=== PATIENT | female | born 1940 | race Caucasian/White ===

== ENCOUNTER 2022-05-31 20:18 | Inpatient (IN) | payer OTHER ==
[~2022-05-31] VITALS: Ht 157.5 cm; Wt 72.7 kg
[~2022-05-31 20:18] MED LIST: ASPI81CH PO; ATOR20 PO; LISI20 PO; METO50ER PO
[2022-05-31 22:41] LABS: Free Thyroxine 1.34 ng/dL (0.70-1.60); Magnesium, Blood 2.5 mg/dL (1.6-2.4); Phosphorus, Blood 5.7 mg/dL (2.5-4.9)
--- NOTE | 2022-06-01 04:46 | NUR ---
PATIENT IS ALERT AND ORIENTED X4, COOPERATIVE WITH CARE. BED ALRM USED SISTER STATES SHE HAS BEEN "GROGGY, AND FORGETS LATELY" WELL UNSTABLE ON HER FEET PER REPORT. VSS, AND NO COMPLAINTS OF PAIN. LUNG SOUNDS CLEAR BUT DIM IN BASES. TELE READING NS AT 73 PER TECH. IV INFUSING AT 200 AND WNL. ABD FIRM, DISTENDED AND HAS HARD PALPABLE LUMPS. NO SKIN ISSUES OR BREAKDOWN. N/V TREATED PER JUN. WILL CONT TO MONITOR.
[2022-06-01 04:58] LABS: Bun/Creatinine Ratio 16.7 (12.0-20.0); Creatinine, Blood 3.83 mg/dL (0.40-1.00); Potassium, Blood 4.6 mmol/L (3.5-5.5)
[2022-06-01 05:48] LABS: Calcium, Blood 12.5 mg/dL (8.5-10.1)
--- NOTE | 2022-06-01 10:39 | NUR ---
Spiritual care visit attempted. Upon receiving a referral for spiritual care, I visited the patient. I introduced myself, my title and the purpose my visit and patient stated that she is rolling over and going to sleep now. I then ask if she would like me to contact someone from her dada group ([employer]) and she stated that they have already come but thank you for asking. I will continue to remain available to patient and family.
[2022-06-01] MEDS ORDERED: HYDROCODONE-AC1 EA10 PO (18:07)
[2022-06-01] MEDS ORDERED: ONDA4ODT PO (18:08)
--- NOTE | 2022-06-01 18:36 | NUR ---
SHIFT SUMMARY MS BALDERRAMA HAS BEEN TIRED AND SLEEPY TODAY. SHE IS ABLE TO ANSWER ALL ORIENTATION QUESTIONS. HER SISTER SAID THAT SHE HAS BEEN CONFUSED FOR SEVERAL DAYS AND SHE DID HAVE SOME TROUBLE DESCRIBING SOME OF HER SYMPTOMS TODAY. SHE HAS HAD MINIMAL DISCOMFORT, HAS HAD NAUSEA WHICH WAS EASED WITH ZOFRAN. IVF CONTINUE. VERY POOR PO INTAKE, SHE HAS EATEN A FEW BITES TODAY, MOSTLY SAID THAT SHE HAS NO APPETITE AND DOESN'T FEEL LIKE EATING. TOLERATED SOME SIPS OF WATER. INCONTINENT OF URINE SEVERAL TIMES. ENCOURAGED TO GET UP TO THE BEDSIDE COMMODE AND SHE WAS ABLE TO URINATE ON THE COMMODE A COUPLE OF TIMES, BUT SAID IT WAS A BIG EFFORT FOR HER TO GET UP TO THE COMMODE. 2 PERSON ASSISTANCE TO BSC. RENAL/BLADDER ULTRASOUND DONE AT BEDSIDE TODAY. 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 BED LOW, CALL LIGHT IN REACH AND BED ALARM ON.
[2022-06-02 04:51] LABS: BASOPHILS ABSOLUTE AUTO 0.03 K/mm3 (0.00-0.23); BASOPHILS PERCENT AUTO 1 % (0-2); EOSINOPHILS PERCENT AUTO 4 % (0-6); Hemoglobin 8.1 g/dL (11.5-16.0); IMMATURE GRAN ABSOLUTE AUTO 0.03 K/mm3 (0.00-0.10); IMMATURE GRAN PERCENT AUTO 1 % (0-1); LYMPHOCYTES ABSOLUTE AUTO 0.85 K/mm3 (0.84-5.20); LYMPHOCYTES PERCENT AUTO 18 % (21-46); MONOCYTES ABSOLUTE AUTO 0.37 K/mm3 (0.16-1.47); MONOCYTES PERCENT AUTO 8 % (4-13); Mean Corpuscular HGB 28.2 pg (26.0-34.0); Mean Corpuscular HGB Conc 31.2 g/dL (31.5-36.5); Mean Corpuscular Volume 91 fL (80-100); Mean Platelet Volume 10.7 fL (9.1-12.4); NEUTROPHILS ABSOLUTE AUTO 3.39 K/mm3 (1.96-9.15); NEUTROPHILS PERCENT AUTO 70 % (41-73); Platelet Count 113 K/mm3 (150-400); RDW Coefficient Variation 17.1 % (11.7-14.2); RDW Standard Deviation 56.6 fL (35.1-46.3); Red Blood Cell Count 2.87 M/mm3 (3.80-5.20); White Blood Cell Count 4.87 K/mm3 (4.00-11.30)
[2022-06-02 05:13] LABS: Albumin, Blood 2.4 g/dL (3.4-5.0); Albumin/Globulin Ratio 0.7 (0.8-1.8); Bilirubin, Total 0.3 mg/dL (0.1-1.0); Bun/Creatinine Ratio 17.6 (12.0-20.0); Calcium, Blood 10.8 mg/dL (8.5-10.1); Creatinine, Blood 2.61 mg/dL (0.40-1.00); Globulin, Blood 3.6 g/dL (2.2-4.0); Magnesium, Blood 1.8 mg/dL (1.6-2.4); Phosphorus, Blood 2.9 mg/dL (2.5-4.9); Potassium, Blood 4.2 mmol/L (3.5-5.5)
--- NOTE | 2022-06-02 06:59 | NUR ---
PATIENT SLEPT FOR SOME OF THE NIGHT, C/O OF ABD PAIN, TREATED PER [facility] [facility] THROUGHOUT THE SHIFT, WAKING EVERY HOUR OR SO TO BE CHANGED. PATIENTS FAMILY WAS AT BEDSIDE AND VERY EMOTIONAL. SISTER WILL BE AT [facility] THIS MORNING.
--- NOTE | 2022-06-02 09:40 | NUR ---
RN NOTE IVF ORDER PUT IN [facility] FOR NS 100CC/HR PER DR VILCHIS TELEPHONE ORDER. FAMILY AT BEDSIDE, MESSAGE LEFT WITH [facility] TO SEE IF THEY CAN SPEACK WITH FAMILY. PT HAD NAUSEA THIS AM, POOR PO INTAKE. GIVEN ZOFRAN.
--- NOTE | 2022-06-02 17:07 | NUR ---
SHIFT SUMMARY MS BALDERRAMA HAS BEEN TIRED TODAY. SOME EPISODES OF EMESIS, ZOFRAN GIVEN, PHENERGAN CONVERTED TO IVPB TO PROTECT HER VEINS, AWAITING ARRIVAL FROM PHARMACY. NO C/O PAIN OR SOB. ON TELE, SR WITH BBB NO CALLS FROM [employer]. GOOD FAMILY SUPPORT, FAMILY TALKED WITH [facility]IVE CARE AND WITH DR VILCHIS TODAY. MS BALDERRAMA HAS BEEN SIPPING ON WATER SLOWLY, POOR PO INTAKE OVERALL. INCONTINENT OF URINE. NO BM. OFFERED TO HELP HER TO BSC BUT PT SAID SHE'S TOO TIRED AND WEAK TO GET UP. SHE HAS BEEN VERY TOLERANT OF Q2HR TURNS. ORIENTATED TO QUESTIONS, APPROPRIATE AND ABLE TO COMMUNICATE HER NEEDS WELL. PER FAMILY SHE HAS BEEN A BIT MUDDLED AT TIMES. BED LOW, CALL LIGHT IN REACH. BED ALARM IN USE. USING CALL LIGHT APPROPRIATELY.
--- NOTE | 2022-06-02 17:47 | NUR ---
Met with pt and family today. The pt and her sister Gela live together, and Gela is currently being treated for pancreatic cancer. She has agreed to take pt home with hospice, and this is what the pt is asking for as well. She is refusing food, and she is sleeping almost around the clock. She has made it clear she is ready to "go home and be comfortable". Pt and sister are planning to go home with hospice on Saturday or Saturday, whichever day works better with discharge.
--- NOTE | 2022-06-02 18:10 | NUR ---
SHIFT SUMMARY MS BALDERRAMA IS SAID THE FEELINGS OF SOB ON EXERTION ARE SLIGHTLY IMPROVED TODAY. SHE WALKED IN TO THE BATHROOM WITH ASSISTANCE AND HUMIDIFIER ATTENDANT REPORTED PULSE OX WAS 89% WHEN SHE RETURNED INTO BED ON 4L NC O2. SHE SAID SHE DOESN'T FEEL LIKE SHE COULD TAKE CARE OF HERSELF AT HOME YET WITH THIS AMOUNT OF SOB. NO C/O ANY PAIN. BED LOW. CALL LIGHT IN REACH.
--- NOTE | 2022-06-03 04:49 | NUR ---
PATIENT SLEPT FOR THE MOST OF THE NIGHT, REMAINED IN BED, ORIENTED X4, NEEDS REMINDERS TO CONSUME FLUIDS. STATES SHE DOES NOT HAVE AN APPITITE. IV INFUSING AND WNL. NO PAIN OR N/V REPORTED. WILL CONT TO MONITOR.
[2022-06-03 05:10] LABS: BASOPHILS ABSOLUTE AUTO 0.03 K/mm3 (0.00-0.23); BASOPHILS PERCENT AUTO 1 % (0-2); EOSINOPHILS ABSOLUTE AUTO 0.24 K/mm3 (0.00-0.68); EOSINOPHILS PERCENT AUTO 5 % (0-6); Hematocrit 25.1 % (33.0-51.0); Hemoglobin 8.1 g/dL (11.5-16.0); IMMATURE GRAN ABSOLUTE AUTO 0.02 K/mm3 (0.00-0.10); IMMATURE GRAN PERCENT AUTO 0 % (0-1); LYMPHOCYTES ABSOLUTE AUTO 0.88 K/mm3 (0.84-5.20); LYMPHOCYTES PERCENT AUTO 17 % (21-46); MONOCYTES PERCENT AUTO 8 % (4-13); Mean Corpuscular HGB 28.7 pg (26.0-34.0); Mean Corpuscular HGB Conc 32.3 g/dL (31.5-36.5); Mean Corpuscular Volume 89 fL (80-100); Mean Platelet Volume 10.5 fL (9.1-12.4); NEUTROPHILS ABSOLUTE AUTO 3.77 K/mm3 (1.96-9.15); NEUTROPHILS PERCENT AUTO 71 % (41-73); Platelet Count 116 K/mm3 (150-400); RDW Coefficient Variation 17.2 % (11.7-14.2); RDW Standard Deviation 55.9 fL (35.1-46.3); Red Blood Cell Count 2.82 M/mm3 (3.80-5.20); White Blood Cell Count 5.34 K/mm3 (4.00-11.30)
[2022-06-03 06:45] LABS: Bun/Creatinine Ratio 18.3 (12.0-20.0); Calcium, Blood 9.9 mg/dL (8.5-10.1); Creatinine, Blood 1.91 mg/dL (0.40-1.00); Magnesium, Blood 1.7 mg/dL (1.6-2.4); Phosphorus, Blood 2.2 mg/dL (2.5-4.9); Potassium, Blood 4.1 mmol/L (3.5-5.5)
--- NOTE | 2022-06-03 10:23 | NUR ---
RN NOTE MS BALDERRAMA IS TIRED, OX4. C/O NAUSEA THIS AM, GIVEN PHENERGAN IVPB, SHE HAD A FEW SIPS OF JUICE FROM HER BREAKFAST TRAY AND HAD EMESIS. GIVEN ZOFRAN. DR CESPEDES CAME TO SEE HER AND ORDERED ATIVAN FOR NAUSEA. SHE SAID SHE'S FEELING A LITTLE BIT BETTER AT THE MOMENT, WILL REASSESS. NO BM SINCE PRIOR TO ADMIT, GIVEN MOM. ABDOMEN SOFT, DISTENDED, PAINFUL TO PALPATION, NOT WHEN UNDISTURBED. URINARY INCONTINENCE. PT WEAK AND NOT WANTING TO GET UP OUT OF BED. TURNING AND REPOSITIONING WELL WITH ASSISTANCE. BED LOW, CALL LIGHT IN REACH.
--- NOTE | 2022-06-03 10:43 | NUR ---
I returned a phone call to pt's sister, Gela. She states she and family are making room for DME and hospital bed in their home for anticipated d/c home with hospice on Saturday or Saturday. She wanted to make sure bed was not being delivered today and before they were ready. I assured Gela that today was a good day for rearranging furniture for DME and that DME delivery would not be arranged until CM available tomorrow to coordinate dc plans for home with pt and sister. Gela relieved and is expecting to hear from CM tomorrow.
--- NOTE | 2022-06-03 16:37 | NUR ---
SHIFT SUMMARY SEE PRIOR NOTE. MS BALDERRAMA IS TIRED, SLEEPING MUCH OF THE DAY. ORIENTATED, NO CONFUSION EVIDENT. TURNING IN BED WELL, INCONTINENT OF URINE. TELEMETRY DISCONTINUED. ATIVAN SEEMS TO HAVE HELPED NAUSEA THIS AFTERNOON, THOUGH SHE HAS MINIMAL INTAKE, SUCKING ON ICE CHIPS AND DECLINING MEAL TRAYS. PREVIOUS TO THAT SHE WAS GIVEN PHENERGAN AND ZOFRAN IV THIS SHIFT. NO C/O PAIN EXCEPT ON ABDOMINAL PALPATION. STRONG FAMILY SUPPORT. MOM GIVEN EARLIER THIS SHIFT, NO BM YET. BED LOW, CALL LIGHT IN REACH.
[2022-06-04 05:02] LABS: BASOPHILS ABSOLUTE AUTO 0.03 K/mm3 (0.00-0.23); BASOPHILS PERCENT AUTO 1 % (0-2); EOSINOPHILS ABSOLUTE AUTO 0.24 K/mm3 (0.00-0.68); EOSINOPHILS PERCENT AUTO 5 % (0-6); Hemoglobin 7.9 g/dL (11.5-16.0); IMMATURE GRAN ABSOLUTE AUTO 0.02 K/mm3 (0.00-0.10); IMMATURE GRAN PERCENT AUTO 0 % (0-1); LYMPHOCYTES ABSOLUTE AUTO 1.04 K/mm3 (0.84-5.20); LYMPHOCYTES PERCENT AUTO 21 % (21-46); MONOCYTES ABSOLUTE AUTO 0.39 K/mm3 (0.16-1.47); MONOCYTES PERCENT AUTO 8 % (4-13); Mean Corpuscular HGB 28.4 pg (26.0-34.0); Mean Corpuscular HGB Conc 31.6 g/dL (31.5-36.5); Mean Corpuscular Volume 90 fL (80-100); Mean Platelet Volume 10.6 fL (9.1-12.4); NEUTROPHILS ABSOLUTE AUTO 3.23 K/mm3 (1.96-9.15); NEUTROPHILS PERCENT AUTO 65 % (41-73); Platelet Count 109 K/mm3 (150-400); RDW Coefficient Variation 17.6 % (11.7-14.2); RDW Standard Deviation 58.4 fL (35.1-46.3); Red Blood Cell Count 2.78 M/mm3 (3.80-5.20); White Blood Cell Count 4.95 K/mm3 (4.00-11.30)
[2022-06-04 05:19] LABS: Bun/Creatinine Ratio 17.8 (12.0-20.0); Calcium, Blood 9.3 mg/dL (8.5-10.1); Creatinine, Blood 1.52 mg/dL (0.40-1.00); Magnesium, Blood 1.8 mg/dL (1.6-2.4); Phosphorus, Blood 1.4 mg/dL (2.5-4.9); Potassium, Blood 3.8 mmol/L (3.5-5.5)
--- NOTE | 2022-06-04 06:43 | NUR ---
AOX4, PLEASANT, NAUSEOUS INTERMITTENTLY, CALLS APPROPRIATELY. ATIVAN GIVEN X1 FOR NAUSEA, NORCO X1 FOR PAIN. INCONTINENT PER PT CHOICE DUE TO WEAKNESS AND NAUSEA. VSS. AWAITING [facility] DISCUSSION. NO SIGNIFICANT CHANGES OVER NIGHT.
--- NOTE | 2022-06-05 05:49 | NUR ---
PT SLEEPS MOST OF SHIFT, NO COMPLAINTS OF PAIN OR NAUSEA. REPOSITIONS SELF IN BED FOR YOVANY CARE. INCONTINENT. COMFORT CARE ORDERED. NO EVENTS DURING SHIFT. NO SIGNIFICANT CHANGES NOTED.
[2022-06-05] MEDS ORDERED: HALO2 PO (10:09)
[2022-06-05] MEDS ORDERED: Ativan1 MG PO (10:10)
[2022-06-05] MEDS ORDERED: DULCOLAX400 MG/5 M PO (10:11)
[2022-06-05] MEDS ORDERED: OMEP20ER PO (10:12)
[2022-06-05] MEDS ORDERED: MORP20L PO (10:13)
[2022-06-05] MEDS ORDERED: PROM12.5S PR (10:14)
--- NOTE | 2022-06-05 13:37 | NUR ---
PT DISCHARGED WITH DC INSTRUCTIONS IN PACKET TO GIVE TO FAMILY. PT DECLINED PAIN MEDS OR ATIVAN BEFORE DC, STATES SHE IS CURRENTLY COMFORTABLE. BED TO STRETCHER TRANSFER. ALL BELONGINGS SENT HOME WITH PT. OFFICIAL TIME OF DC 1310
== END 2022-06-05 13:11 | disposition hospice, home (50) | DRG 375 ==
LOC: ER 20:18 → MEDS 06-01 00:23
PROVIDERS: Student in an Organized Health Care Education/Training Program; ADMIT Internal Medicine
DX: C76.2 Malignant neoplasm of abdomen (principal); E87.1 Hypo-osmolality and hyponatremia; N17.9 Acute kidney failure, unspecified; N13.30 Unspecified hydronephrosis; N18.30 Chronic kidney disease, stage 3 unspecified; D63.1 Anemia in chronic kidney disease; I25.10 Atherosclerotic heart disease of native coronary artery without angina pectoris; Z51.5 Encounter for palliative care; E83.52 Hypercalcemia; E83.39 Other disorders of phosphorus metabolism; I12.9 Hypertensive chronic kidney disease with stage 1 through stage 4 chronic kidney disease, or unspecified chronic kidney disease; K76.0 Fatty (change of) liver, not elsewhere classified; Z79.899 Other long term (current) drug therapy; Z79.82 Long term (current) use of aspirin; Z79.811 Long term (current) use of aromatase inhibitors; Z79.02 Long term (current) use of antithrombotics/antiplatelets; Z98.890 Other specified postprocedural states; Z85.3 Personal history of malignant neoplasm of breast; Z95.5 Presence of coronary angioplasty implant and graft
CPT/HCPCS: 36415; 76770; 80048; 80053; 82330; 82570; 82652; 82728; 83540; 83550; 83690; 83735; 83930; 83935; 83970; 84100; 84300; 84439; 84484; 85025; 93005; 93010; 96374; 99284-25; A9270; J0630; J1644; J2060; J2405; J2550; J7030